=== PATIENT | male | born 1935 | race Caucasian/White ===

== ENCOUNTER → 2017-01-24 | Outpatient (CLI) | payer OTHER ==
[2015-03-08 09:53] VITALS: BP 141/63
--- NOTE | 2017-01-24 10:13 | CT ---
HISTORY: Dizziness. Study: CT brain without contrast Comparison: CT head dated February 28, 2015. Technique: Multiple axial images of the brain were obtained from the skull base to the vertex without administr ation of IV contrast. Dose reduction techniques including Automated Exposure Control (AEC) and adju stment of mA and kV were utilized. Findings: Age related cortical atrophy and chronic small vessel ischemic changes . Remote lacunar infarct of t he left caudate head. No acute intraparenchymal hemorrhage or mass can be identified. No extra-axia l fluid collections are seen. No alteration in the attenuation of the brain parenchyma can be ident ified to suggest acute or subacute ischemic change. The ventricular system is symmetric and nondila teddy. The extracranial structures are grossly unremarkable. IMPRESSION: 1. No acute intracranial process can be identified. Reported By:
== END ==
LOC: RAD 09:43
PROVIDERS: ATTEND Internal Medicine
DX: R42 Dizziness and giddiness (principal)
CPT/HCPCS: 70450

== ENCOUNTER 2017-02-13 01:25 | Emergency (ER) | payer OTHER ==
[2017-02-13 01:43] VITALS: BMI 22.9
[2017-02-13 01:57] LABS: BASOPHILS # (AUTO) 0.1 X10^3/uL (0.0-0.1); EOSINOPHILS # (AUTO) 0.2 x10^3/uL (0.0-0.2); EOSINOPHILS % (AUTO) 2.2 % (0.9-2.9); HEMATOCRIT 44.4 % (42.0-54.0); HEMOGLOBIN 15.3 g/dL (13.5-18.0); LYMPHOCYTES # (AUTO) 1.7 X10^3/uL (1.3-2.9); MEAN CORPUSCULAR HEMOGLOBIN 31.7 pg (27.0-34.0); MEAN CORPUSCULAR HGB CONC 34.4 g/dL (33.0-35.0); MEAN CORPUSCULAR VOLUME 92.3 fL (80.0-100.0); MEAN PLATELET VOLUME 7.8 fL (7.4-11.0); MONOCYTES # (AUTO) 0.7 x10^3/uL (0.3-0.8); MONOCYTES % (AUTO) 9.1 % (0.0-13.0); NEUTROPHILS # (AUTO) 4.9 x10^3/uL (2.2-4.8); NEUTROPHILS % (AUTO) 64.7 % (42.0-75.0); PLATELET COUNT 165 X10^3/uL (150.0-450.0); RED BLOOD COUNT 4.81 X10^6/uL (4.7-6.0); RED CELL DISTRIBUTION WIDTH 13.4 % (11.6-16.5); WHITE BLOOD COUNT 7.6 X10^3/uL (3.6-10.0)
--- NOTE | 2017-02-13 01:57 | DR.GENAD ---
HPI - Complaint/Symptoms Chief Complaint Doctors Comments: According to the spouse patient awakened her at 2200 hours and could not talk plain. His left side could not work and could not speak plain. His left side of face would not move. EMS was called at 1240. Upon initial he had left side hemiparesis with a MEND score of 14. PMH tripple by pass and paced rhythmn PMH - PMH Past Medical History: Hypertension, Hypothyroidism Past Surgical History: Yes Surgical History: Other - Family History Family Medical History: Heart Failure, Hypertension - Social History Do you use any recreational Drugs:: No ROS - Review of Systems Constitutional: See HPI Eyes: See HPI ENTM: No Symptoms Reported Respiratoy: No Symptoms Reported Cardiovascular: No Symptoms Reported Gastrointestinal/Abdominal: No Symptoms Reported Genitourinary: No Symptoms Reported Neurological: See HPI, Numbness, Paresthesia, Weakness Musculoskeletal: Left (weakness) PE - Vital Signs Vitals: Temperature 97 F Pulse Rate [Apical] 60 Pulse Rate 59 Respiratory Rate 22 Blood Pressure [Left Arm] 165/79 Blood Pressure [Right Arm] 159/78 Blood Pressure [Standing] 92/59 Blood Pressure [Sitting] 108/55 Blood Pressure [Lying] 99/50 Blood Pressure 167/92 O2 Sat by Pulse Oximetry 96 - General Limitations: Language Barrier, Physical Limitation (left sided weakness) General Appearance: Alert, In No Apparent Distress - Head Head Exam: Normal Inspection, Atraumatic - Eyes Eye exam: Normal Appearance, Mydrasis (left) - ENT ENT Exam: Normal Exam External Ear Exam: Normal External Inspection TM/Canal Exam: Bilateral Normal Nose Exam: Normal Nose Exam Mouth Exam: Normal Inspection Throat Exam: Normal Inspection - Neck Neck Exam: Normal Inspection - Chest Chest Inspection: Normal Inspection - Respiratory Respiratory Exam: Normal Lung Sounds Bilat Respiratory Exam: Bilateral Clear to Auscultation - Cardiovascular Cardiovascular Exam: Regular Rate - Abdominal Exam Abdominal Exam: Normal Inspection Abdominal Tenderness: negative: RUQ, RLQ, LUQ, LLQ, Epigastrium, Suprapubic, Diffuse, Mild, Moderate, Severe, Other - Extremities Extremities Exam: Other (LLE movement improved-lifts 10cm) - Back Back Exam: Normal Inspection - Neurologic Neurological Exam: Alert, Motor Sensory Deficit - Psychiatric Psychiatric Exam: Depressed - Skin Skin Exam: Warm, Dry, Intact Course - Reevaluation 1st: Improved - Consultation Called: 02:50 (Dr Valencia referred to ER to ER transfer) Call Returned: 03:35 (Dr Carrero ER physician accepted patient for transfer) ROR - Labs Reviewed Result Diagrams: 02/13/17 01:46 02/13/17 01:46 Laboratory: WBC 7.6 X10^3/uL (3.6-10.0) 02/13/17 01:46 RBC 4.81 X10^6/uL (4.7-6.0) 02/13/17 01:46 Hgb 15.3 g/dL (13.5-18.0) 02/13/17 01:46 Hct 44.4 % (42.0-54.0) 02/13/17 01:46 MCV 92.3 fL (80.0-100.0) 02/13/17 01:46 MCH 31.7 pg (27.0-34.0) 02/13/17 01:46 MCHC 34.4 g/dL (33.0-35.0) 02/13/17 01:46 RDW 13.4 % (11.6-16.5) 02/13/17 01:46 Plt Count 165 X10^3/uL (150.0-450.0) 02/13/17 01:46 MPV 7.8 fL (7.4-11.0) 02/13/17 01:46 Neut % 64.7 % (42.0-75.0) 02/13/17 01:46 Lymph % 23.0 % (21.0-51.0) 02/13/17 01:46 [place] % 9.1 % (0.0-13.0) 02/13/17 01:46 Eos % 2.2 % (0.9-2.9) 02/13/17 01:46 Baso % 1.0 % (0.2-1.0) 02/13/17 01:46 Neut # 4.9 x10^3/uL (2.2-4.8) H 02/13/17 01:46 Lymph # 1.7 X10^3/uL (1.3-2.9) 02/13/17 01:46 [place] # 0.7 x10^3/uL (0.3-0.8) 02/13/17 01:46 Eos # 0.2 x10^3/uL (0.0-0.2) 02/13/17 01:46 Baso # 0.1 X10^3/uL (0.0-0.1) 02/13/17 01:46 Absolute Nucleated RBC 0.0 /100WBC 02/13/17 01:46 INR Target Range - 02/13/17 01:46 INR 1.85 (0.8-1.3) H 02/13/17 01:46 PTT 37.5 SECONDS (22.9-36.5) H 02/13/17 01:46 PTT Comment - 02/13/17 01:46 Sodium 141 mmol/L (136-145) 02/13/17 01:46 Corrected Sodium TNP 02/13/17 01:46 Potassium 3.9 mmol/L (3.5-5.1) 02/13/17 01:46 Chloride 105 mmol/L (98-107) 02/13/17 01:46 Carbon Dioxide 23.9 mmol/L (21-32) 02/13/17 01:46 BUN 14 mg/dL (7-18) 02/13/17 01:46 Creatinine 0.87 mg/dL (0.70-1.30) 02/13/17 01:46 Est GFR (MDRD) Af Amer > 60 (>60) 02/13/17 01:46 Est GFR (MDRD) Non-Af > 60 (>60) 02/13/17 01:46 Glucose 109 mg/dL (65-99) H 02/13/17 01:46 Calcium 9.1 mg/dL (8.5-10.1) 02/13/17 01:46 Corrected Calcium TNP 02/13/17 01:46 Total Bilirubin 1.10 mg/dL (0.2-1.0) H 02/13/17 01:46 AST 23 Units/L (15-37) 02/13/17 01:46 ALT 20 Units/L (12-78) 02/13/17 01:46 Alkaline Phosphatase 64 Units/L (46-116) 02/13/17 01:46 Total Protein 7.5 g/dL (6.4-8.2) 02/13/17 01:46 Albumin 4.1 g/dL (3.4-5.0) 02/13/17 01:46 Globulin 3.4 g/dL (2.5-4.5) 02/13/17 01:46 Albumin/Globulin Ratio 1.2 Ratio (1.1-2.1) 02/13/17 01:46 Specimen Type Catherized urine 02/13/17 01:56 Urine Color Yellow (YELLOW) 02/13/17 01:56 Urine Appearance Clear (CLEAR) 02/13/17 01:56 Urine pH 5.0 (5.0 - 8.0) 02/13/17 01:56 Ur Specific [place] 1.015 (1.000-1.030) 02/13/17 01:56 Urine Protein Negative (NEGATIVE) 02/13/17 01:56 Urine Glucose (UA) Negative (NEGATIVE) 02/13/17 01:56 Urine Ketones Negative (NEGATIVE) 02/13/17 01:56 Urine Occult Blood 3+ (NEGATIVE) 02/13/17 01:56 Urine Nitrite Negative (NEGATIVE) 02/13/17 01:56 Urine Bilirubin Negative (NEGATIVE) 02/13/17 01:56 Urine Urobilinogen Normal (NORMAL) 02/13/17 01:56 Ur Leukocyte Esterase Negative (NEGATIVE) 02/13/17 01:56 Urine RBC 2-6 /HPF (NEGATIVE) 02/13/17 01:56 Urine WBC 0-3 /HPF (NEGATIVE) 02/13/17 01:56 Ur Squamous Epith Cells Rare /HPF (NEGATIVE) 02/13/17 01:56 Urine Bacteria Negative /HPF (NEGATIVE) 02/13/17 01:56 Ur Culture Indicated? No/not indicated 02/13/17 01:56 - XRAY XRAY Interpreted by: Radiologist (CT Brain: No acute intracranial abnormality or change from the prior. Atrophy and microangiopathy) - Diagnosis Discharge Problem: CVA (cerebrovascular accident) Qualifiers: CVA mechanism: unspecified Qualified Code(s): I63.9 - Cerebral infarction, unspecified - Discharge Plan Condition: Stable - Follow ups/Referrals Follow ups/Referrals: NFD,None [Primary Care Provider] - 3 days - Instructions
[2017-02-13 02:03] LABS: BILIRUBIN,URINE NEGATIVE (NEGATIVE); BLOOD/HEMOGLOBIN,URINE 3+ (NEGATIVE); GLUCOSE, URINE NEGATIVE (NEGATIVE); KETONES,URINE NEGATIVE (NEGATIVE); LEUKOCYTE ESTERASE ,URINE NEGATIVE (NEGATIVE); NITRITES,URINE NEGATIVE (NEGATIVE); PROTEIN,URINE NEGATIVE (NEGATIVE); UROBILINOGEN,URINE NORMAL (NORMAL)
[2017-02-13 02:08] LABS: ALANINE AMINOTRANSFERASE 20 Units/L (12-78); ALBUMIN 4.1 g/dL (3.4-5.0); ALKALINE PHOSPHATASE 64 Units/L (46-116); ASPARTATE AMINO TRANSFERASE 23 Units/L (15-37); BLOOD UREA NITROGEN 14 mg/dL (7-18); CALCIUM 9.1 mg/dL (8.5-10.1); CARBON DIOXIDE 23.9 mmol/L (21-32); CHLORIDE 105 mmol/L (98-107); CREATININE 0.87 mg/dL (0.70-1.30); GLUCOSE 109 mg/dL (65-99); SODIUM 141 mmol/L (136-145); TOTAL PROTEIN 7.5 g/dL (6.4-8.2); eGFR BLACK RACES > 60 (>60); eGFR NON BLACK RACES > 60 (>60)
[2017-02-13 02:11] LABS: APPEARANCE,URINE CLEAR (CLEAR); BACTERIA,URINE NEGATIVE /HPF (NEGATIVE); COLOR,URINE YELLOW (YELLOW); SQUAMOUS EPITHELIAL CELL,UR RARE /HPF (NEGATIVE)
--- NOTE | 2017-02-13 02:22 | CT ---
CT head without contrast Indication: Stroke symptoms. Weakness. Technique: Axial images from the skullbase to the vertex without contrast. Coronal and sagittal refo rmats provided. Comparison: January 24, 2017 CT. Findings: There is diffuse atrophy with ex vacuo ventricle sulcal enlargement. There is no acute int racranial hemorrhage, mass or mass effect. Microangiopathic changes noted. No new area of hypoattenu ation to suggest large acute infarct identified. Old right caudate nucleus lacunar infarct noted. Th ere is no extra-axial fluid collection. Review of bone windows shows no osseous abnormality. Paranasal sinuses and mastoid air cells are diony ar. Impression: No acute intracranial abnormality or change from the prior. Atrophy and microangiopathy. Reported By:
[2017-02-13 02:33] VITALS: BP 159/78
[2017-02-13] MEDS ORDERED: HEPARIN SODIUM IN D5W 25,000 UNITS/500 ML BAG IV ONE (03:23)
[2017-02-13] MEDS ORDERED: HEPARIN SODIUM INJ 5000 UNITS ONE (03:23)
[2017-02-13] MEDS ORDERED: HEPARIN SODIUM INJ 5000 UNITS IVP ONE (03:33)
[2017-02-13] MEDS ORDERED: HEPARIN SODIUM IN D5W 25,000 UNITS/500 ML BAG IV PRN (03:33)
--- NOTE | 2017-02-13 05:55 | RAD ---
Chest AP portable Indication: CVA. Weakness. Comparison: November 19, 2012. Findings: There is no pneumothorax. There is cardiomegaly and increased interstitial markings sugges ting CHF. Pacemaker leads are present. No definite consolidation seen. Impression: Cardiomegaly without mild edema. Followup with PA and lateral chest further characterize . Reported By:
== END 2017-02-13 04:05 | disposition short-term general hospital (02) ==
LOC: ER 01:25
PROC: 0T9B70Z Drainage of Bladder with Drainage Device, Via Natural or Artificial Opening (ICD-10-PCS; principal; 2017-02-13)
DX: I63.8 Other cerebral infarction (principal); G51.0 Bell's palsy; R20.0 Anesthesia of skin; R53.1 Weakness; G31.9 Degenerative disease of nervous system, unspecified; I10 Essential (primary) hypertension; Z79.01 Long term (current) use of anticoagulants
CPT/HCPCS: 36415; 51702; 70450; 71010; 80053; 81001; 85025; 85610; 85730; 93005; 96365; 96374; 96375; 99284; 99285; A4222; J1644

== ENCOUNTER → 2017-04-22 | Outpatient (CLI) | payer OTHER ==
--- NOTE | 2017-04-22 15:40 | RAD ---
Three views of the left shoulder Indication: Left shoulder pain Findings: Examination is limited given lack of external rotation view. There is mild degenerative sampson nge of the AC and glenohumeral joints. No acute fracture or malalignment is identified. No localizing soft tissue swelling. No displaced left-sided rib fracture. 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 No acute fra cture, malalignment or localizing soft tissue swelling. Reported By:
== END | disposition home or self-care (01) ==
LOC: RAD 14:28
PROVIDERS: ATTEND Internal Medicine
DX: M25.512 Pain in left shoulder (principal); M19.012 Primary osteoarthritis, left shoulder
CPT/HCPCS: 73030

== ENCOUNTER → 2017-05-16 | Outpatient (CLI) | payer OTHER ==
--- NOTE | 2017-05-19 08:49 | RAD ---
HISTORY: Left wrist pain, nontraumatic Study: Left wrist AP, lateral, oblique Comparison: None Findings: No evidence for acute cortical disruption or dislocation can be identified. The carpal bones appear well aligned. The visualized portions of the distal radius and ulna are unremarkable. No significan t soft tissue abnormality can be identified. The joints are normal. Incidental note is made of arteri al vascular calcifications. IMPRESSION: 1. Negative exam. Reported By:
--- NOTE | 2017-05-19 08:53 | RAD ---
HISTORY: Left wrist and hand pain, nontraumatic Study: Left hand AP, lateral, oblique Comparison: None Findings: There is no evidence for acute bone or acute joint abnormality. No fracture, lytic, or blastic lesion is identified. No erosive arthritis is present. There is some degenerative joint disease present in the 2nd and 3rd MCP joints. 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
== END | disposition home or self-care (01) ==
LOC: RAD 11:04
PROVIDERS: ATTEND Internal Medicine
DX: M79.642 Pain in left hand (principal); M79.672 Pain in left foot; M25.532 Pain in left wrist
CPT/HCPCS: 73100; 73130

== ENCOUNTER → 2017-08-12 | Outpatient (CLI) | payer OTHER ==
--- NOTE | 2017-08-12 13:52 | RAD ---
Examination: Chest, PA and lateral views History: Cough, CHF Comparison reference 04/24/2017 Findings: Continued cardiomegaly with previous sternotomy. There is a multi chamber pacemaker present . Central pulmonary vascular congestion is present but has improved. There is no evidence now for pul monary edema, pneumonia or large pleural effusion. Nonacute rib fracture deformities are again noted in the left chest. Impression: Stable cardiomegaly with postsurgical findings. Moderate pulmonary vascular congestion wi th significant improvement in the congestive process since 04/24/2017. Reported By:
[2017-08-12 14:25] LABS: BASOPHILS % (AUTO) 0.1 % (0.2-1.0); EOSINOPHILS % (AUTO) 0.2 % (0.9-2.9); HEMATOCRIT 44.2 % (42.0-54.0); HEMOGLOBIN 14.9 g/dL (13.5-18.0); LYMPHOCYTES # (AUTO) 1.5 X10^3/uL (1.3-2.9); LYMPHOCYTES % (AUTO) 10.4 % (21.0-51.0); MEAN CORPUSCULAR HEMOGLOBIN 30.7 pg (27.0-34.0); MEAN CORPUSCULAR HGB CONC 33.7 g/dL (33.0-35.0); MEAN CORPUSCULAR VOLUME 90.9 fL (80.0-100.0); MEAN PLATELET VOLUME 7.5 fL (7.4-11.0); MONOCYTES # (AUTO) 1.1 x10^3/uL (0.3-0.8); MONOCYTES % (AUTO) 7.8 % (0.0-13.0); NEUTROPHILS # (AUTO) 11.4 x10^3/uL (2.2-4.8); NEUTROPHILS % (AUTO) 81.5 % (42.0-75.0); PLATELET COUNT 206 X10^3/uL (150.0-450.0); RED BLOOD COUNT 4.86 X10^6/uL (4.7-6.0); RED CELL DISTRIBUTION WIDTH 14.2 % (11.6-16.5)
[2017-08-12 15:47] LABS: ALANINE AMINOTRANSFERASE 28 Units/L (12-78); ALBUMIN 3.8 g/dL (3.4-5.0); ALKALINE PHOSPHATASE 65 Units/L (46-116); ASPARTATE AMINO TRANSFERASE 23 Units/L (15-37); BLOOD UREA NITROGEN 26 mg/dL (7-18); CALCIUM 9.8 mg/dL (8.5-10.1); CARBON DIOXIDE 28.6 mmol/L (21-32); CHLORIDE 103 mmol/L (98-107); CREATININE 0.87 mg/dL (0.70-1.30); SODIUM 138 mmol/L (136-145); TOTAL PROTEIN 7.7 g/dL (6.4-8.2); eGFR BLACK RACES > 60 (>60); eGFR NON BLACK RACES > 60 (>60)
== END | disposition home or self-care (01) | DRG 204 ==
LOC: LAB 13:21
PROVIDERS: ATTEND Internal Medicine
DX: R05 Cough (principal); J40 Bronchitis, not specified as acute or chronic; R53.1 Weakness; I51.7 Cardiomegaly; R09.89 Other specified symptoms and signs involving the circulatory and respiratory systems
CPT/HCPCS: 36415; 71046; 80053; 85025